=== PATIENT | female | born 1970 | race Caucasian/White ===

== ENCOUNTER 2021-11-09 16:47 | Emergency (ER) | payer OTHER ==
[~2021-11-09] VITALS: Ht 160 cm; Wt 68.9 kg
[2021-11-09] MEDS ORDERED: KETOROLAC TROMETHAMINE 15 MG INJ IVP ONE (21:30)
[2021-11-09] MEDS ORDERED: HYDROMORPHONE 1 MG/1 ML DISP.SYRIN IV ONE (21:30)
[2021-11-09] MEDS ORDERED: IV NORMAL SALINE 1000 ML BAG IV ONE (21:30)
[2021-11-09] MEDS ORDERED: ONDANSETRON 4 MG/2 ML VIAL IV ONE (21:30)
[2021-11-09 21:43] LABS: HEMATOCRIT 42.2 % (31.2-41.9); MEAN CORPUSCULAR HEMOGLOBIN 31.5 uug (24.7-32.8); MEAN CORPUSCULAR VOLUME 92.6 fL (75.5-95.3); PLATELET COUNT (AUTO) 274 K/uL (179-408)
[2021-11-09 21:57] LABS: BILIRUBIN,DIRECT 0.1 mg/dL (0.0-0.2); BILIRUBIN,TOTAL 0.2 mg/dL (0.2-1.0); CREATININE 0.9 mg/dL (0.6-1.3); POTASSIUM 3.9 mmol/L (3.5-5.1)
[2021-11-09 21:58] LABS: TOTAL PROTEIN, SERUM 8.3 g/dL (6.4-8.2)
--- NOTE | 2021-11-09 22:00 | NUR ---
OBTAINED LOG IN ACCESS FROM IT TO PROVIDE CARE TO PATIENT. OFF TO CT AND BACK AND MAP INSERTED WITHOUT DIFF. VSS PLACED ON MONITOR FOR SAT AND B/P MONITORING, NS INFUSING WO AND MAINTAIN SAFE ENVIRONMENT, O2 AT 2L/MIN
[2021-11-09] MEDS ORDERED: HYDROMORPHONE 1 MG/1 ML DISP.SYRIN ONE (22:02)
[2021-11-09] MEDS ORDERED: KETOROLAC TROMETHAMINE 30 MG INJ ONE (22:02)
[2021-11-09] MEDS ORDERED: ONDANSETRON 4 MG/2 ML VIAL ONE (22:03)
[2021-11-09 22:10] LABS: *BILIRUBIN,URIN NEGATIVE (NEGATIVE); *BLOOD, URINE NEGATIVE (NEGATIVE); *CLARITY,URINE CLEAR (CLEAR); *COLOR,URINE YELLOW (YELLOW); *KETONES,URINE NEGATIVE (NEGATIVE); *URINE HCG, QUAL NEG (NEGATIVE); *UROBILINOGEN,URINE 0.2 E.U./dl (NORMAL); LEUKOCYTE ESTERASE ,URINE NEGATIVE (NEGATIVE); NITRITE, URINE NEGATIVE (NEGATIVE); PH,URINE 5.5 (5.0-8.0); UGLUCOSE NEGATIVE (NEGATIVE)
--- NOTE | 2021-11-09 22:40 | NUR ---
MEDICATED WITH TORADOL 30 MG AND DILAUDID 1 MD IVP AND ZOFRAN FOR N/V. EFFECTIVE RESULTS AT 2240
[2021-11-09] MEDS ORDERED: OXYC-128 PO (23:08)
[2021-11-09] MEDS ORDERED: PRED50TA PO (23:08)
--- NOTE | 2021-11-09 23:58 | NUR ---
D/C TO HOME WITH RX AND FOLLOW UP APPT AND PATIENT VERBALIZED UNDERSTANDING.MAP D/C WITH CATH INTACT.
== END 2021-11-09 23:58 | disposition home or self-care (01) ==
LOC: ER 16:47
DX: M54.14 Radiculopathy, thoracic region (principal); D25.9 Leiomyoma of uterus, unspecified; R03.0 Elevated blood-pressure reading, without diagnosis of hypertension
CPT/HCPCS: 99284; 74176; 96374; 96375; 80076; 80048; 81003; 84703; 83735; 85025; 87086; 36415; J1885; J2405; J1170; J7040